=== PATIENT | female | born 1955 | race Caucasian/White ===

== ENCOUNTER 2022-07-26 11:12 | Outpatient (OUT) | payer MEDICARE, SELFPAY ==
--- NOTE | 2022-07-26 11:30 | XR_ITS ---
The [address] [address] Patient Name: MIGUEL MORGAN MRN: [id number] date: 1955 Sex: F Assigned Patient Location: [facility] Current Patient Location: [facility] Accession/Order Number: [id number] Exam Date: 07/26/2022 11:39 Report Date: 07/26/2022 14:27 At the request of: MICHAEL RIGGINS Procedure: XR abdomen 1V EXAM: XR abdomen 1V HISTORY: Kidney Stones N20.0, Urinary incontinence female N39.3 COMPARISON: None. TECHNIQUE: AP view of the abdomen. FINDINGS: Nonobstructive bowel gas pattern is noted. 3 mm calculus in the right kidney region. 2 mm calculus in the left kidney region. The osseous structures are intact. IMPRESSION: Nonobstructive bowel gas pattern. Probable bilateral nephrolithiasis. Electronically authenticated by: EDDIE AUSTIN Date: 07/26/2022 14:27
== END 2022-07-26 11:13 ==
LOC: RAD 11:16
PROVIDERS: PCP Family Medicine; Visit Provider Urology
DX: N20.0 Calculus of kidney (principal); Z87.442 Personal history of urinary calculi; N39.3 Stress incontinence (female) (male)
CPT/HCPCS: 74018